=== PATIENT | male | born 1935 | race Caucasian/White ===

== ENCOUNTER 2017-04-07 10:03 | Emergency (ER) | payer MEDICARE, BC ==
--- NOTE | 2017-04-07 10:50 | RAD ---
CHEST 2 VIEWS: Date: 04/07/17 HISTORY: Productive cough. COMPARISON: None. FINDINGS: Lungs are clear. No pneumothorax or effusion. Cardiac silhouette and mediastinal contours within norm al limits. IMPRESSION: No acute intrathoracic abnormality. POS: [facility]
== END 2017-04-07 11:30 | disposition home or self-care (01) ==
LOC: BURERS 10:03
DX: J06.9 Acute upper respiratory infection, unspecified (principal); E78.5 Hyperlipidemia, unspecified; I10 Essential (primary) hypertension; N40.0 Benign prostatic hyperplasia without lower urinary tract symptoms; Z79.899 Other long term (current) drug therapy
CPT/HCPCS: 71020